=== PATIENT | male | born 1995 | race Caucasian/White ===

== ENCOUNTER 2018-06-26 16:01 | Emergency (ER) | payer SELFPAY ==
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
== END 2018-06-26 16:44 | disposition still patient (30) ==
LOC: ER 16:01
DX: S10.0XXA Contusion of throat, initial encounter (principal); X58.XXXA Exposure to other specified factors, initial encounter; Y93.89 Activity, other specified; Y92.89 Other specified places as the place of occurrence of the external cause; Y99.8 Other external cause status
CPT/HCPCS: Z7502